=== PATIENT | female | born 1980 | race Two or more races ===

== ENCOUNTER → 2021-05-17 08:59 | Outpatient (BNVA) | payer OTHER, SELFPAY | PROVIDERS: PCP Internal Medicine; Visit Provider Physician Assistant ==

== ENCOUNTER → 2021-06-05 08:05 | Outpatient (BNVA) | payer OTHER, SELFPAY | PROVIDERS: PCP Internal Medicine; Visit Provider Surgery ==

== ENCOUNTER 2021-06-10 09:33 | Outpatient (REF) | payer OTHER, SELFPAY ==
--- NOTE | ~2021-06-10 | XR_ITS ---
EXAMINATION: XR CHEST CLINICAL INFORMATION: Obesity. COMPARISON: None TECHNIQUE: 2 views of the chest were obtained. FINDINGS: The lungs are clear. The cardiomediastinal silhouette is normal in size. There is no pleural effusion or pneumothorax. No acute osseous abnormality. XR/XR chest 2V IMPRESSION: No acute cardiopulmonary findings.
--- NOTE | 2021-06-10 09:45 | ECG_ITS ---
Test Reason : obesity Blood Pressure : / mmHG Vent. Rate : 071 BPM Atrial Rate : 071 BPM P-R Int : 166 ms QRS Dur : 102 ms QT Int : 404 ms P-R-T Axes : 011 031 064 degrees QTc Int : 439 ms Normal sinus rhythm with sinus arrhythmia Normal ECG No previous ECGs available Referred By: Mika Childs Electronically Signed By:MARIAH KWON
[2021-06-10 10:34] LABS: MANUAL DIFF FLAG NO
[2021-06-10 10:59] LABS: Basophils Percent Auto 0.3 % (0-2); Eosinophils Percent Auto 0.5 % (0-4); Hematocrit 35.1 % (37-47); Hemoglobin 10.5 g/dl (12.0-16.0); Imm Gran Abs Auto 0.05 X10*3/uL (0.00-0.03); Imm Gran Pct Auto 0.8 % (0.0-0.4); Lymphocytes Absolute Auto 1.9 X10*3/uL (1.2-4.9); Lymphocytes Percent Auto 29.6 % (20-40); Mean Corpuscular HGB Conc 29.9 g/dl (31.0-35.0); Mean Corpuscular Hemoglobin 17.9 pg (27.0-33.0); Monocytes Absolute Auto 0.5 X10*3/uL (0.1-1.2); Monocytes Percent Auto 8.4 % (2-11); Neutrophils Absolute Auto 3.8 X10*3/uL (2.0-8.3); Neutrophils Percent Auto 60.4 % (45-73); Platelet Count 180 X10*3/uL (160-400); Red Blood Count 5.85 X10*6/uL (4.20-5.50); Red Cell Distribution Width 18.2 % (11.0-16.0); White Blood Count 6.3 X10*3/uL (4.8-10.8)
[2021-06-10 11:01] LABS: Estimated Average Glucose 105 mg/dL; Hemoglobin A1c % 5.3 %
[2021-06-10 11:13] LABS: Alanine Aminotransferase 10 U/L (0-31); Albumin Level 4.1 g/dL (3.5-5.0); Alkaline Phosphatase 72 U/L (39-117); Anion Gap 11 (12-20); Aspartate Amino Transferase 13 U/L (5-31); Bilirubin Total 0.2 mg/dL (0.0-1.0); Blood Urea Nitrogen 8 mg/dL (9-16); C Reactive Protein 0.54 mg/dL (< or = 0.50); Calcium 9.8 mg/dL (8.4-10.2); Carbon Dioxide 22 mmol/L (22-29); Chloride 109 mmol/L (96-108); Cholesterol 229 mg/dL; Estimated Glomerular Filt Rate > 60; Glucose Random 96 mg/dL (60-115); HDL Cholesterol 29 mg/dL; Iron 30 mcg/dL (30-160); LDL Cholesterol Calculated 182 mg/dl; Percent Iron Saturation 8 % (15-50); Potassium 4.2 mmol/L (3.3-5.1); Sodium 138 mmol/L (135-145); Total Iron Binding Capacity 379 mcg/dL (228-428); Total Protein 6.6 g/dL (6.5-8.0); Triglycerides 90 mg/dL; Unsaturated Iron Binding 349 ug/dL
[2021-06-10 11:19] LABS: Ferritin 31 ng/mL (10-122); TSH reflex Free T4 1.08 uIU/mL (0.32-4.0); Vitamin D 25-OH Total 9.7 ng/mL (>30)
[2021-06-10 12:22] LABS: Vitamin B12 456 pg/mL (200-900)
[2021-06-11 18:17] LABS: Insulin Level Total 20.6 uIU/mL
[2021-06-11 18:27] LABS: Calcium (PTHI) 9.9 mg/dL (8.6-10.2); PTHI 99 pg/mL (14-64)
[2021-06-13 06:28] LABS: Zinc 71 mcg/dL (60-130)
[2021-06-14 12:16] LABS: Vitamin B1 <6 nmol/L (8-30)
[2021-06-16 00:26] LABS: Vitamin A 34 mcg/dL (38-98)
== END 2021-06-10 09:34 | disposition home or self-care (01) ==
LOC: HO.LAB 09:33
PROVIDERS: PCP Internal Medicine; Visit Provider Surgery
DX: E66.9 Obesity, unspecified (principal); Z68.38 Body mass index [BMI] 38.0-38.9, adult; E78.5 Hyperlipidemia, unspecified
CPT/HCPCS: 36415; 71046; 80053; 80061; 82306; 82607; 82728; 82746; 83036; 83525; 83540; 83970; 84425; 84443; 84590; 84630; 85025; 86140; 93005

== ENCOUNTER → 2021-07-03 08:09 | Outpatient (BNVA) | payer OTHER, SELFPAY | PROVIDERS: PCP Internal Medicine; Visit Provider Surgery ==

== ENCOUNTER → 2021-07-11 09:21 | Outpatient (BNVA) | payer OTHER, SELFPAY | PROVIDERS: PCP Internal Medicine; Visit Provider Physician Assistant ==

== ENCOUNTER 2021-07-12 | Outpatient (REF) | payer OTHER, SELFPAY ==
[2021-07-15 12:36] LABS: H Pylori Breath Test Positive (Negative)
== END 2021-07-12 00:01 | disposition home or self-care (01) ==
LOC: HO.LNP
PROVIDERS: Visit Provider Surgery
DX: E66.9 Obesity, unspecified (principal); Z68.38 Body mass index [BMI] 38.0-38.9, adult; E78.5 Hyperlipidemia, unspecified
CPT/HCPCS: 83013

== ENCOUNTER → 2021-07-12 09:46 | Outpatient (BNVA) | payer OTHER, SELFPAY | PROVIDERS: PCP Internal Medicine; Visit Provider Physician Assistant ==

== ENCOUNTER → 2021-07-19 08:22 | Outpatient (BNVA) | payer OTHER, SELFPAY | PROVIDERS: PCP Internal Medicine; Visit Provider Dietitian, Registered | DX: E66.9 Obesity, unspecified (principal) | CPT/HCPCS: 97802 ==

== ENCOUNTER 2021-08-01 10:03 | Outpatient (REF) | payer OTHER, SELFPAY ==
--- NOTE | ~2021-08-01 | FL_ITS ---
EXAMINATION: XR GI SERIES CLINICAL INFORMATION: Obesity. COMPARISON: None TECHNIQUE: Air-contrast upper GI examination. FINDINGS: There is normal apposition of the vocal cords while saying E. There is normal elevation of the soft palate while saying candy. Patient swallowed thin and thick barium without difficulty. No nasopharyngeal reflux or tracheal aspiration. No Zenker's diverticulum. There is normal esophageal motility without evidence of stricture or mucosal abnormality. No hiatal hernia. No gastroesophageal reflux. The stomach demonstrates normal distensibility without abnormal mass or ulceration. There was no delay in gastric emptying. The duodenal bulb and sweep appeared unremarkable. FLUOROSCOPY TIME: 1.2 minutes DOSE AREA PRODUCT: 8.487 Gy-cm2 (restrepo-centimeter squared) FL/FL upper GI series IMPRESSION: Normal air-contrast upper GI examination.
--- NOTE | ~2021-08-01 | US_ITS ---
EXAMINATION: US COMPLETE ABDOMEN WITH LIVER ELASTOGRAPHY CLINICAL INFORMATION: Obesity COMPARISON: None. TECHNIQUE: Real-time imaging of the abdominal viscera. Noninvasive ultrasound liver fibrosis assessment is performed using Ivette ElastPQ point quantification shear wave elastography (pSWE) with a C5-2 MHz transducer. Multiple elastography samples are obtained. FINDINGS: PANCREAS: Normal. The visualized pancreatic head and body are normal in appearance. The remainder of the pancreas is obscured from visualization by the overlying bowel gas. ABDOMINAL AORTA: The proximal, middle, and distal aortic segments are normal in caliber. INFERIOR VENA CAVA: Visualized portions are normal. LIVER: Normal. The liver demonstrates normal size, contour and echogenicity. No focal lesion or intrahepatic biliary duct dilatation. The right lobe measures 15 cm in length. The left lobe measures 11 cm in length. Portal flow is normal/hepatopedal Shear wave liver elastography median stiffness is 1.8 m/s (reference: normal median stiffness is 1.3 m/s or less). IQR/median stiffness to assess sampling precision is 0.13 (reference: good quality data set is IQR/median stiffness of 0.15 or less). GALLBLADDER: There is a wall echo shadow complex suggestive of a gallbladder filled with gallstones. COMMON BILE DUCT: Normal in caliber measuring 0.2 cm in diameter. RIGHT KIDNEY: Normal. No hydronephrosis. No renal calculi or focal parenchymal lesions. The kidney measures 13.8 cm in maximum dimension. LEFT KIDNEY: Normal. No hydronephrosis. No renal calculi or focal parenchymal lesions. The kidney measures 13.7 cm in maximum dimension. SPLEEN: Normal. The spleen measures 11.3 cm in maximum dimension. FREE FLUID: None. US/US abdomen comp w elastography IMPRESSION: 1. Impression: Slightly echogenic liver probably representing fatty infiltration. Wall echo shadow complex in the gallbladder suggestive of a gallbladder filled with gallstones. 2. Liver elastography: Adequate liver sampling. Suggestive of compensated advanced chronic liver disease but need further test for confirmation. REFERENCE: Society of Radiologists in Ultrasound Liver Stiffness Thresholds (2020): LIVER STIFFNESS THRESHOLDS: *Liver Stiffness equal or less than 1.3 m/s: High probability of being normal. *Liver Stiffness less than 1.7 m/s: In the absence of other known clinical signs, rules out compensated advanced chronic liver disease. *Liver Stiffness 1.7-2.1 m/s: Suggestive of compensated advanced chronic liver disease but need further test for confirmation. *Liver Stiffness over 2.1 m/s: Rules in compensated advanced chronic liver disease. *Liver Stiffness over 2.4 m/s: Suggestive of clinically significant portal hypertension. QUALITY OF DATA SET: *IQR/Median value equal or less than 0.15 implies a quality data set. *IQR/Median value over 0.15 implies a poor quality data set. SIGNIFICANT CHANGE FROM PRIOR EXAM: Significant change if liver stiffness measurement is 10% or greater from prior exam. OTHER CONSIDERATIONS: The stage of liver fibrosis may be overestimated in the setting of acute hepatitis, liver inflammation, elevated liver function tests, hepatic vascular congestion, obstructive cholestasis, non-fasting state, and infiltrative diseases such as amyloidosis and lymphoma. In some patients with NAFLD, the liver stiffness thresholds for compensated advanced chronic liver disease may be lower. In causes other than viral hepatitis and NAFLD, liver stiffness thresholds are not well established.
== END 2021-08-01 10:04 | disposition home or self-care (01) ==
LOC: HO.US 10:03
PROVIDERS: PCP Internal Medicine; Visit Provider Surgery
DX: E66.9 Obesity, unspecified (principal); Z68.38 Body mass index [BMI] 38.0-38.9, adult; E78.5 Hyperlipidemia, unspecified
CPT/HCPCS: 74240; 76705; 76981

== ENCOUNTER → 2021-08-23 08:13 | Outpatient (BNVA) | payer OTHER, SELFPAY | PROVIDERS: PCP Internal Medicine; Referring Provider Surgery; Visit Provider Dietitian, Registered | DX: E66.9 Obesity, unspecified (principal); Z68.35 Body mass index [BMI] 35.0-35.9, adult | CPT/HCPCS: 97803 ==

== ENCOUNTER 2021-09-02 09:48 | Outpatient (REF) | payer OTHER, SELFPAY ==
[2021-09-04 14:10] LABS: H Pylori Breath Test Negative (Negative)
== END 2021-09-02 09:49 | disposition home or self-care (01) ==
LOC: HO.LNP 09:48
PROVIDERS: Physician Assistant Surgical; PCP Internal Medicine; Visit Provider Surgery
DX: A04.8 Other specified bacterial intestinal infections (principal)
CPT/HCPCS: 83013

== ENCOUNTER → 2021-09-11 11:33 | Outpatient (BNVA) | payer OTHER, SELFPAY | PROVIDERS: PCP Internal Medicine; Visit Provider Physician Assistant Surgical ==

== ENCOUNTER → 2021-09-23 08:33 | Outpatient (BNVA) | payer OTHER, SELFPAY | LOC: CF 09-24 10:15 | PROVIDERS: PCP Internal Medicine; Visit Provider Surgery ==

== ENCOUNTER → 2021-09-24 10:28 | Outpatient (BNVA) | payer OTHER, SELFPAY | PROVIDERS: PCP Internal Medicine; Visit Provider Physician Assistant ==

== ENCOUNTER → 2021-09-27 13:21 | Outpatient (BNVA) | payer OTHER, SELFPAY | PROVIDERS: PCP Internal Medicine; Referring Provider Internal Medicine; Visit Provider Physician Assistant ==

== ENCOUNTER 2021-10-24 12:00 | Day surgery (SDC) | payer OTHER, SELFPAY ==
[2021-09-24 10:25] LABS: MANUAL DIFF FLAG NO
[2021-09-24 10:36] LABS: Basophils Percent Auto 0.5 % (0-2); Eosinophils Absolute Auto 0.1 X10*3/uL (0.0-0.4); Eosinophils Percent Auto 0.9 % (0-4); Hematocrit 36.4 % (37.0-47.0); Imm Gran Abs Auto 0.03 X10*3/uL (0.00-0.03); Imm Gran Pct Auto 0.5 % (0.0-0.4); Lymphocytes Absolute Auto 1.5 X10*3/uL (1.2-4.9); Lymphocytes Percent Auto 24.9 % (20-40); Mean Corpuscular HGB Conc 30.2 g/dl (31.0-35.0); Mean Corpuscular Hemoglobin 17.7 pg (27.0-33.0); Mean Corpuscular Volume 58.5 fL (80.0-98.0); Monocytes Absolute Auto 0.4 X10*3/uL (0.1-1.2); Monocytes Percent Auto 6.9 % (2-11); Neutrophils Absolute Auto 3.9 x10*3/uL (2.0-8.3); Neutrophils Percent Auto 66.3 % (45-73); Platelet Count 226 X10*3/uL (160-400); Red Blood Count 6.22 X10*6/uL (4.20-5.50); Red Cell Distribution Width 19.9 % (11.0-16.0); White Blood Count 5.8 X10*3/uL (4.8-10.8)
[2021-09-24 10:41] LABS: INTERNATIONAL NORM RATIO 1.1 (0.9-1.1); Prothrombin Time 12.1 SEC (9.9-13.0)
[2021-09-24 10:44] LABS: Partial Thromboplastin Time 38.3 SEC (24.1-38.0)
[2021-09-24 10:45] LABS: Estimated Average Glucose 103 mg/dL; Hemoglobin A1c % 5.2 %
[2021-09-24 10:58] LABS: Alanine Aminotransferase 23 U/L (0-31); Alkaline Phosphatase 84 U/L (39-117); Anion Gap 9 (12-20); Aspartate Amino Transferase 20 U/L (5-31); Bilirubin Total 0.2 mg/dL (0.0-1.0); Blood Urea Nitrogen 10 mg/dL (9-16); C Reactive Protein 0.67 mg/dL (< or = 0.50); Calcium 10.4 mg/dL (8.4-10.2); Carbon Dioxide 27 mmol/L (22-29); Chloride 108 mmol/L (96-108); Cholesterol 260 mg/dL; Estimated Glomerular Filt Rate > 60; Glucose Random 94 mg/dL (60-115); HDL Cholesterol 23 mg/dL; LDL Cholesterol Calculated 204 mg/dl; Potassium 4.1 mmol/L (3.3-5.1); Sodium 140 mmol/L (135-145); Triglycerides 169 mg/dL
[2021-09-24 11:18] LABS: Insulin 14 uU/mL (2-29); TSH reflex Free T4 1.03 uIU/mL (0.32-4.0)
[2021-09-27 10:43] VITALS: BMI 34.0
[2021-10-18 14:31] LABS: COVID-19 Test Negative (Negative)
--- NOTE | 2021-10-20 13:57 | MHC.SHP ---
Pre-Procedural Eval Section A Date of Service: 10/20/21 The patient is an INPATIENT: No The History & Physical has been completed within 30 days and I have reviewed it.: Yes Section B Chief Complaint: obesity Relevant Family History (Specify if Yes): No Relevant Social History: None Present Medications: None Medical History: No relevant PMH History of Previous Operations: No relevant previous surgery Allergies: Allergies Allergy/AdvReac Type Severity Reaction Status Date / Time No Known Allergies Allergy Verified 09/27/21 10:40 Review of Systems Sugical H&P ROS: Negative: Constitution, Cardiovascular, Respiratory, Neurological, Psychiatric, Hem-Onc, Allergic/Immunologic, Gastrointestinal, Genitourinary, Musculoskeletal, Integumentary, Endocrine and Eyes/Ears/Nose/Throat Exam Surgical H&P Exam: Normal: HEENT, Normal: Heart, Normal: Lungs, Normal: Extremities, Normal: Abdomen, Normal: Skin and Normal: Neurological Plan Diagnosis/Plan: Unchanged I have reviewed the history and physical and performed a pertinent physical examination on my patient. No changes have occurred unless specified.
--- NOTE | 2021-10-23 10:59 | P.CONAN_ITS ---
Documented by User: Michaela Heath NP 10/23/21 11:47 HPI - Anesthesia Eval Consult details Narrative: 41yo F for Gastrectomy Sleeve,EGD,poss diaphragmatic hernia,poss ventral hernia,poss open PMFSH Active Problems Active Problems: All Active Problems (Updated 07/17/21 @ 20:16 by Mika Childs MD) H. pylori infection (Acute) Moderate episode of recurrent major depressive disorder (Acute) Vitamin A deficiency (Acute) Vitamin B12 deficiency (Acute) Vitamin D deficiency (Acute) Vitamin B1 deficiency (Acute) Hypersomnolence (Acute) Knee pain (Acute) Anxiety (Acute) Depression (Acute) Hyperlipidemia (Acute) BMI 38.0-38.9,adult (Acute) Obesity (Acute) Past Medical History Medical History (Updated 07/17/21 @ 20:16 by Mika Childs MD) Anxiety Depression Hyperlipidemia Knee pain Family History Family History (Updated 06/04/21 @ 11:57 by DMITRY Vuong) Mother Thyroid condition Father Thyroid condition Hypertension Sister No problems noted. Sister No problems noted. Sister No problems noted. Son No problems noted. Daughter No problems noted. Surgical History Surgical History (Updated 06/04/21 @ 11:55 by DMITRY Vuong) Hx of tubal ligation S/P panniculectomy Social History Social History (Updated 06/04/21 @ 11:58 by DMITRY Vuong) Are you a primary transitional care manager to a significant other at home: No Do you presently have visiting nurse or other home services: No Alcohol intake: never Patient Tobacco Use Status: Never used Tobacco Use of substances other than those prescribed or required for medical reasons: No Have you been hit, kicked, punched, or otherwise hurt by someone within the past year? If so, by whom?: No Are you DNR?: No Advance Directives: No Advance Directives Information Provided: Yes Advance Directives on File: No Recently lost weight without trying: No How much weight loss: 24-33 pounds Eating poorly because of decreased appetite: No Nutrition screen score: 3 Nutrition Risks: No Nutritional Risk Patient : No Meds Allergies Allergy/AdvReac Type Severity Reaction Status Date / Time No Known Allergies Allergy Verified 09/27/21 10:40 Exam Exam Date and Time: October 23, 2021 1059 Height,Weight and Vital Signs: Height 5 ft 4.5 in Weight 91.231 kg Pertinent Lab Results Pertinent Lab Results: Laboratory Tests 09/24/21 09/24/21 09/24/21 10:20 10:20 10:20 WBC 5.8 RBC 6.22 H Hgb 11.0 L Hct 36.4 L MCV 58.5 L MCH 17.7 L MCHC 30.2 L RDW 19.9 H Plt Count 226 MPV Not Reportable Immature Gran % (Auto) 0.5 H Neut % (Auto) 66.3 Lymph % (Auto) 24.9 [place] % (Auto) 6.9 Eos % (Auto) 0.9 Baso % (Auto) 0.5 Lymph # (Auto) 1.5 [place] # (Auto) 0.4 Eos # (Auto) 0.1 Baso # (Auto) 0.0 Abs Immat Gran (auto) 0.03 Absolute Neuts (auto) 3.9 Absolute Nucleated RBC 0.000 Nucleated RBC % (auto) 0.0 Smear Path Review SEE NOTE PT 12.1 INR 1.1 APTT 38.3 H Sodium 140 Potassium 4.1 Chloride 108 Carbon Dioxide 27 Anion Gap 9 L BUN 10 Creatinine 0.63 Estim Creat Clear Calc TNP Estimated GFR > 60 Random Glucose 94 Estimat Average Glucose Hemoglobin A1c % Insulin Level 14 Calcium 10.4 H D Total Bilirubin 0.2 AST 20 D ALT 23 Alkaline Phosphatase 84 C-Reactive Protein 0.67 H Total Protein 7.0 Albumin 4.0 Triglycerides 169 Cholesterol 260 LDL Cholesterol, Calc 204 HDL Cholesterol 23 D TSH 1.03 COVID-19 ([place]) COVID-19 Clin Com Blood Type Antibody Screen 09/24/21 09/24/21 10/18/21 10:20 10:20 07:11 WBC RBC Hgb Hct MCV MCH MCHC RDW Plt Count MPV Immature Gran % (Auto) Neut % (Auto) Lymph % (Auto) [place] % (Auto) Eos % (Auto) Baso % (Auto) Lymph # (Auto) [place] # (Auto) Eos # (Auto) Baso # (Auto) Abs Immat Gran (auto) Absolute Neuts (auto) Absolute Nucleated RBC Nucleated RBC % (auto) Smear Path Review PT INR APTT Sodium Potassium Chloride Carbon Dioxide Anion Gap BUN Creatinine Estim Creat Clear Calc Estimated GFR Random Glucose Estimat Average Glucose 103 Hemoglobin A1c % 5.2 Insulin Level Calcium Total Bilirubin AST ALT Alkaline Phosphatase C-Reactive Protein Total Protein Albumin Triglycerides Cholesterol LDL Cholesterol, Calc HDL Cholesterol TSH COVID-19 ([place]) Negative COVID-19 Clin Com See Note Blood Type O Positive Antibody Screen NEGATIVE 10/18/21 14:15 WBC RBC Hgb Hct MCV MCH MCHC RDW Plt Count MPV Immature Gran % (Auto) Neut % (Auto) Lymph % (Auto) [place] % (Auto) Eos % (Auto) Baso % (Auto) Lymph # (Auto) [place] # (Auto) Eos # (Auto) Baso # (Auto) Abs Immat Gran (auto) Absolute Neuts (auto) Absolute Nucleated RBC Nucleated RBC % (auto) Smear Path Review PT INR APTT Sodium Potassium Chloride Carbon Dioxide Anion Gap BUN Creatinine Estim Creat Clear Calc Estimated GFR Random Glucose Estimat Average Glucose Hemoglobin A1c % Insulin Level Calcium Total Bilirubin AST ALT Alkaline Phosphatase C-Reactive Protein Total Protein Albumin Triglycerides Cholesterol LDL Cholesterol, Calc HDL Cholesterol TSH COVID-19 ([place]) COVID-19 Clin Com Blood Type O Positive Antibody Screen NEGATIVE Narrative Narrative: EKG 05/2021 Vent. Rate : 071 BPM ? ? Atrial Rate : 071 BPM ?? P-R Int : 166 ms? QRS Dur : 102 ms ? ? QT Int : 404 ms ? ? ? P-R-T Axes : 011 031 064 degrees ?? QTc Int : 439 ms ? Normal sinus rhythm with sinus arrhythmia Normal ECG No previous ECGs available Assessment and Plan Assessment Anesthesia Assessment: Chart Reviewed Documented by User: Frank Salazar 10/24/21 16:28 [facility] Past Medical History Medical History (Updated 07/17/21 @ 20:16 by Mika Childs MD) Anxiety Depression Hyperlipidemia Knee pain Family History Family History (Updated 06/04/21 @ 11:57 by DMITRY Vuong) Mother Thyroid condition Father Thyroid condition Hypertension Sister No problems noted. Sister No problems noted. Sister No problems noted. Son No problems noted. Daughter No problems noted. Family history of problems with anesthesia: No Surgical History Surgical History (Updated 06/04/21 @ 11:55 by DMITRY Vuong) Hx of tubal ligation S/P panniculectomy History of Problems with Anesthesia: No Social History Social History (Updated 06/04/21 @ 11:58 by Dread Varner Lynn) Are you a primary transitional care manager to a significant other at home: No Do you presently have visiting nurse or other home services: No Alcohol intake: never Patient Tobacco Use Status: Never used Tobacco Use of substances other than those prescribed or required for medical reasons: No Have you been hit, kicked, punched, or otherwise hurt by someone within the past year? If so, by whom?: No Are you DNR?: No Advance Directives: No Advance Directives Information Provided: Yes Advance Directives on File: No Recently lost weight without trying: No How much weight loss: 24-33 pounds Eating poorly because of decreased appetite: No Nutrition screen score: 3 Nutrition Risks: No Nutritional Risk Patient : No Meds Allergies Allergy/AdvReac Type Severity Reaction Status Date / Time No Known Allergies Allergy Verified 09/27/21 10:40 Exam Airway Mallampati Class: III TM Dist: >3cm Neck ROM: Full Loose/Missing/Broken Teeth: Yes (Crowns ) Heart: rrr Lungs: bl breath sounds Assessment and Plan Assessment Anesthesia Assessment: Anesthesia Plan Discussed Final Anesthetic Review Family History of Problems with Anesthesia: No History of Problems with Anesthesia: No NPO: Yes ASA Class: III Final Preanesthetic Review: Meds/Allgs Chart Reviewed, Consent Obtained/Reviewed and Anes Risks/Benef Reviewed Patient Risk: Intermediate Procedure Risk: Intermediate Anesthetic Plan Anesthetic Plan: GA Disposition: Inp. Admit - Standard Bed
[2021-10-23 14:47] LABS: COVID-19 Test Negative (Negative); IDNOW Serial# 9DD0AD1C
[2021-10-24] VITALS (9 sets, daily range): BP systolic 106–159; BP diastolic 56–86; PULSE 57–97; RESP 14–18; TEMP 36.1–37; O2SAT 97–100
[2021-10-24] MEDS: Lactated Ringers 1,000 ML 999 ML IV (13:52)
[2021-10-24] MEDS: Lactated Ringers 1,000 ML 100 ML IVCONT (13:52)
--- NOTE | 2021-10-24 14:22 | PM.OP ---
Brief Operative Note Date of Service: 10/24/21 Post-op diagnosis: same Procedure: INITIAL PATIENT BMI ON PRESENTATION AT OUR OFFICE: 38.2 kg/m2 LAST BMI BEFORE SURGERY: 34.9 kg/m2 COMORBIDITIES: GERD, hyperlipidemia, depression, anxiety, cholelithiasis, liver fibrosis, DJD ?The patient presented to the Weight Management Program with significant obesity that was negatively impacting the patient's comorbidities as listed above.? The program is a phased program with a special focus on preoperative medical weight management to promote substantial weight loss and prepare the patients for the second phase of the program: bariatric surgery. The patient participated in an intensive weekly lifestyle ?intervention and exercise program during which the patient ?has lost between the initial office visit and the last preoperative visit 30lbs, or 13.25% of initial actual body weight. It was deemed appropriate for the patient to now have bariatric surgery. In light of the current Covid-19 pandemic and the well documented strong association of obesity and increased risk of worse outcomes if infected with Covid-19 (REFERENCES:https://pubmed.ncbi.nlm.nih.gov/72542907/,?https://pubmed.ncbi.nlm.nih.gov/29707477/), any delay in undergoing bariatric surgery may lead to the patient's worsening health condition and increased?risk of more severe Covid-19 disease if infected. In addition a recent?study from [facility] published in [facility] on 09/16/2021 ([email or web address]) found that, among patients with obesity, substantial weight loss achieved with surgery was associated with improved outcomes of COVID-19 infection. The findings suggest that obesity can be a modifiable risk factor for the severity of COVID-19 infection. In addition, the patient met the BMI-criteria for bariatric surgery based on the BMI on initial presentation. The patient should not be penalized for achieving such weight loss because ?it is not sustainable long-term without surgical intervention and it was achieved in preparation for bariatric surgery ?under my direction and based on my published research ([email or web address] and?https://www.soard.org/article/[email or web address](90)20028-X/pdf) ?that a 10% preoperative weight loss improves long-term weight loss after surgery and reduces perioperative complications.? Insurance carriers such as [facility] have endorsed my recommendations ?and have included in their policies criteria to include a 10% preoperative weight loss requirement. PROCEDURE: Esophago-gastroscopy, laparoscopic lysis of adhesions, laparoscopic sleeve gastrectomy and laparoscopic gastropexy INDICATIONS: This is a 41 year-old female who was electively scheduled for laparoscopic, possibly open sleeve gastrectomy. The risks and complications of the procedure were discussed with the patient in advance, particularly the possibility of ; pulmonary embolism; staple line leak; bleeding; GERD; cardiac, pulmonary, or renal complications; as well as long-term problems such as insufficient weight loss, vitamin deficiency, strictures, or ulcers. The patient understood all the risks, and was in agreement to proceed with surgery. DESCRIPTION OF PROCEDURE: After informed consent was obtained from the patient, the patient was given preoperative antibiotics, and was transferred to the operating room. After successful induction of general anesthesia, pneumatic compression devices were placed on both lower extremities. An upper endoscopy was performed next. The oropharynx and esophagus appeared to be within normal limits. There was no diaphragmatic hernia present consistent with the findings of the preoperative upper GI. The stomach was entered. Then after all fluid and air were suctioned and the stomach was fully decompressed, the scope was withdrawn and secured in the mid esophagus. The patient was then prepped and draped in the usual sterile manner, and abdominal access was established at the right upper quadrant with the Nishant technique. A 12 mm blunt port was inserted, and the abdomen was insufflated with CO2 to a pressure of 15 mmHg. Under direct visualization, additional ports were placed, specifically two 5 mm Versi-step ports to the left upper quadrant, and a 5 mm Versi-Step port to the right upper quadrant. 1% lidocaine plain was used to infiltrate all port sites as well as all fascia defects. Using the EndoClose suture passer device, I placed a #1 Polysorb tie across the falciform ligament in order to retract it up against the abdominal wall and prevent injury of the ligament with our instruments during the procedure. Adhesiolysis took approximately 45 min to complete. There were adhesions in the abdomen from previous exploratory laparotomy involving the omentum and the anterior abdominal wall. Those were lysed completely with the ultrasonic device. Following that, the patient was placed in a steep reverse Trendelenburg position. An additional 5 mm port was placed to the right flank for the Mediflex retractor that was used to retract the left lobe of the liver. The gastro-esophageal fat pad was opened with the ultrasonic device (Thunderbeat, Olympus) and the anterior esophagus and hiatus were exposed. The angle of His was opened with the ultrasonic device the fundus of the stomach from any diaphragmatic and splenic attachments. I then opened the gastrocolic ligament between the transverse colon and the greater curvature of the stomach with the ultrasonic device to enter the lesser sac and facilitate the ligation of the short gastric vessels. I started at a mid-point along the greater curvature and using the Thunderbeat, all short gastric vessels were divided all the way to the angle of His until the left marce was completely dissected at its entirety. I then divided the gastro-colic ligament distally to a distance of about 3-4 cm proximal to the esophagus. The stomach was then divided transversely with one Endo YANG-45 purple, one YANG-45 orange load and 4 YANG-60 articulating orange loads using the AEON stapler and loads. Every effort was made that the gastric sleeve had a tubular shape and an even caliber throughout. Once the sleeve resection was completed, the staple line of the gastric sleeve was reinforced with Hemoclips. The resected stomach was retrieved without difficulty from the Nishant port. A gastropexy was then performed in order to prevent postoperative GERD and partial gastric volvulus. Several interrupted 2.0 Surgidac sutures were placed between the sleeve's staple line and the previously divided greater omentum and gastro-colic ligament using the Endo-Stitch device. ?An upper endoscopy was performed. There was no narrowing at the GE junction. The scope was easily advanced all the way to the pylorus which was clearly visualized. There was no narrowing anywhere and the sleeve's caliber was even throughout. The sleeve's staple line was inspected and there was no evidence of ischemia, bleeding or dehiscence. At that point the gastroscope was withdrawn from the patient?s mouth while we were decompressing the bowel and the stomach from any remaining air. I looked into the lesser sac to see how the sleeve was situating and it was situating well. There was no bleeding from the staple line, spleen, or short gastric vessels. The Mediflex retractor was removed, and the undersurface of the liver was inspected and there was no bleeding. The patient was placed in supine position. I closed the fascial defect of the 12 mm port site with a figure of eight #1 Polysorb suture. Then 100 cc 0.25 % Marcaine plain with 10 mg of Dexamethasone were used to infiltrate the fascial closure as well as all skin incisions. At this point, the abdomen was deflated, all ports were removed under direct vision, and no bleeding was noted from any of the port sites. The skin incisions were irrigated with saline and were closed with 4-0 absorbable monofilament sutures. Steri-Strips and OpSites were used to cover all incisions. The patient was extubated and was transferred in stable condition to the recovery room for further care. I was present and performed all bobo parts of the procedure. Mr. Salazar was the first press operator. There were no residents to assist with this case. Dawit Childs MD, PhD, FACS Surgeon: Mika Childs MD Anesthesia: GETA, local and other (TAP block) Was an Janitorial Maintenance Worker used for this Procedure?: No Janitorial Maintenance Worker: Juno Salazar Estimated blood loss (mL): 10 IV fluids (mL): 3,000 Urine output (mL): 0 (No Naranjo to record) Pathology: other (Stomach) Condition: stable Disposition: PACU
--- NOTE | 2021-10-24 18:03 | P.DS_ITS ---
DS: Providers Provider Date of Service: 10/25/21 Primary care physician: Dennise Hernandez MD DS: Summary Hospital Course Hospital Course: ADMITTING DIAGNOSIS: morbid obesity, anxiety, depression, hyperlipidemia, vitamin deficiency, ? DISCHARGE DIAGNOSIS: same, s/p laparoscopic sleeve gastrectomy ? PAST SURGICAL HISTORY: panniculectomy, tubal ligation, exploratory laparotomy ? PROCEDURE: upper endoscopy, laparoscopic sleeve gastrectomy ? DISCHARGE SUMMARY: ? History of Present Illness: ? The patient is a?41 year-old woman with a BMI of?38.2 kg/m2 and associated co- morbidities as described above. The patient had extensive work-up,lost?23.2 lbs preoperatively and was electively scheduled for laparoscopic, possible open sleeve gastrectomy and gastropexy. Risks and complications of the surgery were discussed with the patient in advance, particularly the possibility of , pulmonary embolism, anastomotic leak, bleeding, bowel injury, GERD, cardiac, renal or pulmonary complications. The patient understood all the risks and was in agreement with the surgical plan. ? Hospital Course: ? The patient underwent an uneventful laparoscopic sleeve gastrectomy with gastropexy on the day of admission. Postoperatively, the patient was transferred to the surgical floor. The patient received IV Acetaminophen and IV dilaudid for pain control. Patient was started on bariatric phase 1 diet POD #0. On postoperative day one, the patient was feeling well without nausea, vomiting, fevers, or tachycardia. The patient had some mild incisional pain and the abdomen was soft. ? On the morning of postoperative day one, the patient was continued on 1 ounce of water or ice every half hour. During the day, the patient did fairly well, having some incisional pain, but able to ambulate adequately and to tolerate liquids well. ? Since the patient is doing well, we decided that the patient was ready to be discharged. The patient was given instructions to follow-up with me next week and to call my office for any fever over 101, persistent abdominal pain, nausea, vomiting, GERD, symptoms of DVT such as calf tenderness, or leg swelling, or pulmonary embolism such as chest pain or shortness of breath. The patient was also instructed to drink 40-60 ounces of liquids per day using the 1-ounce cups. The patient had been given prescriptions for Tylenol for pain, Zofran prn for nausea, and pantoprazole and carafate previously. The patient was encouraged to ambulate and use the incentive spirometer. The patient was allowed to shower, but no baths, and encouraged to stay active at home. All of these instructions were given to the patient personally. All questions were answered and the patient understood all instructions, the instructions were also given to the patient in print. Status at Discharge Functional status at discharge: independent ambulation Time Spent with Patient Time attestation: Total time spent providing and/or coordinating discharge services: Discharge coordination time: Less than 30 minutes Quality: Stroke Does the patient have a stroke diagnosis?: No Physical Exam Verdana 4l Vital Signs: Verdana 4d Verdana 4d Vital Signs: Verdana 4d Verdana 4Bd Last Vital Signs Verdana 4d Bank Representative New 4d Bank Representative New 4d Temp 97.7 F 10/24/21 12:44 Bank Representative New 4d Pulse 57 10/24/21 12:44 Bank Representative New 4d Resp 16 10/24/21 12:44 BP 106/56 L 10/24/21 12:44 Pulse Ox 97 10/24/21 12:44 BMI result Body Mass Index 34.0 DS: Data Data Completed and Pending Pending studies at discharge: Pending at discharge 10/24/21 17:04 Surgical [PTH] Routine Discharge Plan Discharge Patient Disposition: Home, Self-Care Referrals: Dennise Hernandez MD [Primary Care Provider] - 1 Week Discharge Medications: Continued pantoprazole 40 mg tablet,delayed release (DR/EC) 40 mg PO DAILY Qty: 30 2RF sucralfate 100 mg/mL suspension 10 ml PO BID Qty: 400 2RF ondansetron HCl [Zofran] 4 mg tablet 4 mg PO Q12H Qty: 20 0RF Discontinued cholecalciferol (vitamin D3) 125 mcg (5,000 unit) capsule 125 mcg PO DAILY Qty: 30 2RF mecobalamin (vitamin B12) 1,000 mcg tablet,disintegrating 1,000 mcg sublingual DAILY Qty: 30 2RF Rx Instructions: place tablet under tongue and allow to dissolve for at least30 secs before swallowing polyethylene glycol 3350 [Miralax] 17 gram powder in packet 17 g PO DAILY Qty: 14 0RF Rx Instructions: Mix each packet with 8oz of water and do 7 packets on 09/29/21 and another 7 packets on 09/30/21 Activity Restrictions/Additional Instructions: No tub baths, sex or returning to work until discussed at first post op appointment. No exercise, alcohol, tobacco or illegal drug use. Continue to use incentive spirometer hourly while awake. Walk in home for 5- 10 minutes every 2 hours during the first week. Follow all instructions in the bariatric handbook and call with any questions.Discharge Instructions 1. Please call your doctor or come back to the emergency room should any new symptoms arise. 2. You will receive a courtesy call from [facility] 24-48 hours after discharge. 3. Activity: abstain from alcohol, practice limited stair climbing, no bending, no driving, no exercise, no illicit substances, no lifting, no sex, no tub bath, no work. 4. Diet: continue as discussed with Dr. Childs. 5. Dressing Change/Wound Care: Your incision is covered by clear bandages and guaze underneath. If the area is tender, you may apply an ice pack for short intervals (no more than 20 minutes on, followed by at least 20 minutes off). Do not apply heat. Do not use creams, lotions, or topical antibiotics unless instructed to do so by your surgeon. These can cause infection or allergic reaction. 6. Call your doctor if: - Your temperature exceeds 101.5 F - You experience excessive pain or swelling - You have an unexpected reaction to medication - You have excessive bleeding - You experience continued vomiting/nausea - Your incision begins to separate - Your incision shows signs of infection such as increased redness, swelling, excessive pain, heat, or drainage (light blood or clear fluid is normal) 7. General instructions: No lifting greater than 5 lbs for the next 4 weeks[address] within 24 hours of taking narcotic pain medications. If you do not move your bowels in the next 2 days, please take milk of magnesia over the counter. Please follow the post op diet and do not advance your diet until you are seen in the office in about 2 weeks. Please walk around your home every hour or two to prevent blood clots from forming in your legs. You do not need to wake from sleeping to walk. Please sleep in a bed or couch to prevent kinking at the hips and knees. Please take your incentive spirometer (your lung media associate) home with you and use it for the next few days to prevent pneumonias. You may shower, no hot tubs, baths or swimming pools. Please call the office with any questions or concerns such as increasing abdominal pain, fever, chills, shortness of breath, chest pain, leg pain or swelling, or redness or drainage from your incisions. Please stay on stage 3 diet which includes sugar free clear liquids such as ice pops and jello and broth and crystal light. Avoid all carbonation. Please drink 3 protein shakes with at least 25-30 grams of protein daily or 3 of the Celebrate 4:1 shakes which can be purchased in our office. The Celebrate shakes have all of the bariatric vitamins you need if you consume these shakes. If you are drinking other protein shakes, you will need to purchase the Celebrate multivitamins and calcium that we provide in the office (they will provide all the vitamins you need). Please make sure you are consuming at least 40-60 ounces of water in addition to your 3 protein shakes daily. Do not hesitate to contact the office with any questions at . The patient's medical history has been reviewed and they are considered low risk for post op DVT and therefore DVT prophylaxis is not considered necessary. Travel after surgery was reviewed. The patient has not disclosed any travel plans during the first 30 days after surgery and they have been advised that within the first 30 days after surgery any bus, plane, train or car travel over 2 hours in duration is contraindicated due to the possibility of developing blood clots from immobility. Any travel, needs to include periods of ambulation of 10 minutes in duration every 2 hours.? The patient was instructed to discuss any plans for travel during this period with their bariatric surgeon.
[2021-10-24] MEDS: ondansetron HCL 4 MG/2 ML VIAL IVPUSH ×2 (18:18→21:56)
[2021-10-24] MEDS: Metoclopramide HCl 10 MG/2 ML VIAL IVPUSH (18:22)
[2021-10-24] MEDS: Famotidine/PF 20 MG/2 ML VIAL IVPUSH ×2 (18:31→21:00)
[2021-10-24 18:37] LABS: Hematocrit 33.6 % (37.0-47.0); Hemoglobin 10.2 g/dl (12.0-16.0)
[2021-10-24 18:54] LABS: Anion Gap 14 (12-20); Blood Urea Nitrogen 7 mg/dL (9-16); Calcium 9.1 mg/dL (8.4-10.2); Carbon Dioxide 19 mmol/L (22-29); Chloride 109 mmol/L (96-108); Creatinine Clr Calc Pharmacy 136.3; Estimated Glomerular Filt Rate > 60; Glucose Random 137 mg/dL (60-115); Potassium 4.4 mmol/L (3.3-5.1); Sodium 138 mmol/L (135-145)
[2021-10-24] MEDS: 0.9 % Sodium Chloride Flush 3 ML SYRINGE IVFLUSH (19:44)
[2021-10-24] MEDS: Lactated Ringers 1,000 ML 150 ML IVCONT (19:44)
[2021-10-24] MEDS: ceFAZolin Sodium/Dextrose,Iso 2 GM/50 ML PIGGYBACK IV (21:00)
[2021-10-25] MEDS: ondansetron HCL 4 MG/2 ML VIAL IVPUSH ×2 (02:06→10:04)
[2021-10-25] MEDS: Lactated Ringers 1,000 ML 150 ML IVCONT ×2 (02:08→09:57)
[2021-10-25] MEDS: Metoclopramide HCl 10 MG/2 ML VIAL IVPUSH ×2 (03:58→11:30)
[2021-10-25 04:05] VITALS: BP 131/80; PULSE 77; RESP 16; TEMP 36.8; O2SAT 98
[2021-10-25 05:54] LABS: Hematocrit 32.9 % (37.0-47.0); Hemoglobin 9.9 g/dl (12.0-16.0); Imm Gran Abs Auto 0.02 X10*3/uL (0.00-0.03); Imm Gran Pct Auto 0.3 % (0.0-0.4); Lymphocytes Absolute Auto 0.5 X10*3/uL (1.2-4.9); Lymphocytes Percent Auto 7.5 % (20-40); Mean Corpuscular HGB Conc 30.1 g/dl (31.0-35.0); Mean Corpuscular Hemoglobin 17.6 pg (27.0-33.0); Monocytes Absolute Auto 0.2 X10*3/uL (0.1-1.2); Monocytes Percent Auto 2.4 % (2-11); Neutrophils Percent Auto 89.8 % (45-73); Platelet Count 178 X10*3/uL (160-400); Red Blood Count 5.64 X10*6/uL (4.20-5.50); Red Cell Distribution Width 19.2 % (11.0-16.0); White Blood Count 6.7 X10*3/uL (4.8-10.8)
[2021-10-25 05:59] LABS: Mean Corpuscular Volume 58.3 fL (80.0-98.0)
[2021-10-25 06:00] LABS: MANUAL DIFF FLAG SCAN
[2021-10-25 06:16] LABS: Anion Gap 11 (12-20); Blood Urea Nitrogen 4 mg/dL (9-16); Calcium 9.6 mg/dL (8.4-10.2); Carbon Dioxide 21 mmol/L (22-29); Chloride 106 mmol/L (96-108); Estimated Glomerular Filt Rate > 60; Glucose Random 137 mg/dL (60-115); Sodium 134 mmol/L (135-145)
[2021-10-25 06:55] LABS: SLIDE REVIEW VERIFIED
[2021-10-25 08:00] VITALS: BP 131/78; PULSE 70; RESP 18; TEMP 37.2; O2SAT 99
--- NOTE | 2021-10-25 09:16 | MHC.CM.PN ---
PATIENT IS FULLY INDEPENDENT SHE LIVES WITH FAMILY. NO DME OR VNA IN THE HOME. SHE IS COVID-19 VACCINATED PFIZER 01/04/21 01/25/21 09/07/21 INFORMATION ADDED INTO EXPANSE. PATIENT'S SISTER WILL TRANSPORT HOME. HCP COPY REQUESTED.
[2021-10-25] MEDS: Famotidine/PF 20 MG/2 ML VIAL IVPUSH (10:04)
--- NOTE | 2021-10-25 11:27 | HO.POSTANES ---
Post Anesthesia Evaluation Post Anesthesia Evaluation Vital Signs: Vital Signs Temp Pulse Resp BP Pulse Ox 10/25/21 08:00 99.0 F 70 18 131/78 99 10/25/21 04:05 98.3 F 77 16 131/80 98 10/24/21 23:50 98.5 F 65 16 132/75 100 Anesthesia: General Endotracheal-GETA Mental Status: Awake Pain Control: Satisfactory Nausea/Vomiting: None Hydration: Adequate Anesthesia-Related Issues: No Anes. Related Issues
[2021-10-25 12:00] VITALS: BP 125/66; PULSE 83; RESP 16; TEMP 36.9; O2SAT 100
== END 2021-10-25 15:30 | disposition home or self-care (01) ==
LOC: HO.SSS 12:01 → HO.S3 16:35
PROVIDERS: Physician Assistant Surgical; PCP Internal Medicine; Visit Provider Surgery
PROC: (CPT 43845; principal; 2021-10-24 13:40)
DX: E66.9 Obesity, unspecified (principal); Z68.34 Body mass index [BMI] 34.0-34.9, adult; E78.5 Hyperlipidemia, unspecified; G47.10 Hypersomnia, unspecified; K80.20 Calculus of gallbladder without cholecystitis without obstruction; K74.00 Hepatic fibrosis, unspecified; F41.8 Other specified anxiety disorders; Z79.899 Other long term (current) drug therapy
CPT/HCPCS: 43775; 43659; 36415; 80048; 80053; 80061; 83036; 83525; 84443; 85014; 85018; 85025; 85610; 85730; 86140; 86850; 86900; 86901; 87635; 88307; 88342; A4649; J0131; J0690; J1100; J1170; J2250; J2405; J2765; J3010

== ENCOUNTER → 2021-10-30 08:32 | Outpatient (BNVA) | payer OTHER, SELFPAY | PROVIDERS: PCP Internal Medicine; Referring Provider Internal Medicine; Visit Provider Surgery ==

== ENCOUNTER → 2021-11-29 08:17 | Outpatient (BNVA) | payer OTHER, SELFPAY | PROVIDERS: PCP Internal Medicine; Visit Provider Surgery ==

== ENCOUNTER 2021-12-09 09:48 | Outpatient (REF) | payer OTHER, SELFPAY ==
[2021-12-09 10:26] LABS: Eosinophils Percent Auto 0.9 % (0-4); Hematocrit 32.6 % (37.0-47.0); Imm Gran Abs Auto 0.01 X10*3/uL (0.00-0.03); Imm Gran Pct Auto 0.2 % (0.0-0.4); Mean Corpuscular HGB Conc 30.7 g/dl (31.0-35.0); Mean Corpuscular Hemoglobin 18.3 pg (27.0-33.0); Neutrophils Percent Auto 60.6 % (45-73); Red Blood Count 5.47 X10*6/uL (4.20-5.50); Red Cell Distribution Width 21.7 % (11.0-16.0)
[2021-12-09 10:28] LABS: Basophils Percent Auto 0.5 % (0-2); Lymphocytes Absolute Auto 1.2 X10*3/uL (1.2-4.9); Lymphocytes Percent Auto 27.9 % (20-40); Monocytes Absolute Auto 0.4 X10*3/uL (0.1-1.2); Monocytes Percent Auto 9.9 % (2-11); Neutrophils Absolute Auto 2.7 x10*3/uL (2.0-8.3); Platelet Count 182 X10*3/uL (160-400); White Blood Count 4.4 X10*3/uL (4.8-10.8)
[2021-12-09 10:31] LABS: Mean Corpuscular Volume 59.6 fL (80.0-98.0)
[2021-12-09 11:07] LABS: Alanine Aminotransferase 11 U/L (0-31); Albumin Level 3.9 g/dL (3.5-5.0); Alkaline Phosphatase 72 U/L (39-117); Anion Gap 12 (12-20); Aspartate Amino Transferase 14 U/L (5-31); Bilirubin Total 0.7 mg/dL (0.0-1.0); Blood Urea Nitrogen 9 mg/dL (9-16); Calcium 10.1 mg/dL (8.4-10.2); Carbon Dioxide 24 mmol/L (22-29); Chloride 106 mmol/L (96-108); Cholesterol 197 mg/dL; Estimated Glomerular Filt Rate > 60; Glucose Random 84 mg/dL (60-115); HDL Cholesterol 18 mg/dL; LDL Cholesterol Calculated 159 mg/dl; Potassium 3.5 mmol/L (3.3-5.1); Sodium 138 mmol/L (135-145); Total Protein 6.6 g/dL (6.5-8.0); Triglycerides 101 mg/dL
[2021-12-09 11:17] LABS: Thyroid Stimulating Hormone 0.66 uIU/mL (0.32-4.0)
[2021-12-09 11:27] LABS: Vitamin B12 1240 pg/mL (200-900)
[2021-12-09 11:39] LABS: Ferritin 14 ng/mL (10-250)
== END 2021-12-09 09:49 | disposition home or self-care (01) ==
LOC: HO.10HDL 09:48
PROVIDERS: Visit Provider Internal Medicine
DX: D56.3 Thalassemia minor (principal); E78.2 Mixed hyperlipidemia; Z98.84 Bariatric surgery status
CPT/HCPCS: 36415; 80053; 80061; 82607; 82728; 84443; 85025

== ENCOUNTER 2022-01-24 10:16 | Outpatient (REF) | payer OTHER, SELFPAY ==
--- NOTE | ~2022-01-24 | MM_ITS ---
EXAMINATION: MM SCREENING DIGITAL BREAST TOMOSYNTHESIS, BILATERAL CLINICAL INFORMATION: Screening. Asymptomatic. No prior mammography. Age 41. No known family history breast cancer. The lifetime risk of breast cancer based on the Tyrer-Cuzick Model is 10%. COMPARISON: None (current study represents initial baseline exam). TECHNIQUE: Digital breast tomosynthesis is performed in both the craniocaudal and mediolateral oblique views along with computer-aided detection (CAD). Synthesized 2D images are generated from the tomosynthesis. FINDINGS: There are scattered areas of fibroglandular density (ACR BI-RADS breast composition Category b). There are no significant masses, abnormal calcifications, or other abnormalities. The axilla and skin contours are unremarkable. MM/MM tomosynthesis screening BI IMPRESSION: No mammographic evidence of malignancy. ASSESSMENT: BI-RADS 1: Negative RECOMMENDATION: Routine annual mammography screening. This patient's information was entered into a reminder system with a target due date for their next mammogram.
== END 2022-01-24 10:17 | disposition home or self-care (01) ==
LOC: HO.MAMMO 10:16
PROVIDERS: PCP Internal Medicine; Visit Provider Internal Medicine
DX: Z12.31 Encounter for screening mammogram for malignant neoplasm of breast (principal)
CPT/HCPCS: 77063; 77067

== ENCOUNTER → 2022-01-31 09:29 | Outpatient (BNVA) | payer OTHER, SELFPAY | PROVIDERS: PCP Internal Medicine; Referring Provider Internal Medicine; Visit Provider Dietitian, Registered | DX: E66.3 Overweight (principal); Z68.26 Body mass index [BMI] 26.0-26.9, adult | CPT/HCPCS: 97803 ==

== ENCOUNTER → 2022-02-06 14:00 | Outpatient (BNVA) | payer OTHER, SELFPAY | PROVIDERS: PCP Internal Medicine; Visit Provider Counselor Mental Health | DX: Z13.89 Encounter for screening for other disorder (principal) ==

== ENCOUNTER → 2022-02-19 17:00 | Outpatient (BNVA) | payer OTHER, SELFPAY | PROVIDERS: PCP Internal Medicine; Visit Provider Counselor Mental Health | DX: Z13.89 Encounter for screening for other disorder (principal) ==

== ENCOUNTER 2022-09-29 07:34 | Outpatient (REF) | payer OTHER, SELFPAY ==
[2022-09-29 07:59] LABS: MANUAL DIFF FLAG NO
[2022-09-29 08:25] LABS: Basophils Percent Auto 0.7 % (0-2); Eosinophils Absolute Auto 0.1 X10*3/uL (0.0-0.4); Eosinophils Percent Auto 1.7 % (0-4); Hematocrit 34.7 % (37.0-47.0); Hemoglobin 10.4 g/dl (12.0-16.0); Imm Gran Abs Auto 0.02 X10*3/uL (0.00-0.03); Imm Gran Pct Auto 0.4 % (0.0-0.4); Lymphocytes Absolute Auto 1.7 X10*3/uL (1.2-4.9); Lymphocytes Percent Auto 36.5 % (20-40); Mean Corpuscular Volume 59.9 fL (80.0-98.0); Monocytes Absolute Auto 0.5 X10*3/uL (0.1-1.2); Monocytes Percent Auto 10.3 % (2-11); Neutrophils Absolute Auto 2.3 x10*3/uL (2.0-8.3); Neutrophils Percent Auto 50.4 % (45-73); Platelet Count 201 X10*3/uL (160-400); Red Blood Count 5.79 X10*6/uL (4.20-5.50); Red Cell Distribution Width 18.2 % (11.0-16.0); White Blood Count 4.6 X10*3/uL (4.8-10.8)
[2022-09-29 08:29] LABS: Estimated Average Glucose 100 mg/dL; Hemoglobin A1c % 5.1 %
[2022-09-29 08:42] LABS: Alanine Aminotransferase 13 U/L (0-31); Albumin Level 3.6 g/dL (3.5-5.0); Alkaline Phosphatase 60 U/L (39-117); Anion Gap 9 (12-20); Aspartate Amino Transferase 17 U/L (5-31); Bilirubin Total 0.3 mg/dL (0.0-1.0); Blood Urea Nitrogen 8 mg/dL (9-16); C Reactive Protein < 0.10 mg/dL (< or = 0.50); Carbon Dioxide 27 mmol/L (22-29); Chloride 107 mmol/L (96-108); Cholesterol 270 mg/dL; Estimated Glomerular Filt Rate > 60; Glucose Random 88 mg/dL (60-115); HDL Cholesterol 67 mg/dL; Iron 32 mcg/dL (30-160); LDL Cholesterol Calculated 178 mg/dl; Percent Iron Saturation 9 % (15-50); Potassium 4.1 mmol/L (3.3-5.1); Sodium 139 mmol/L (135-145); Total Iron Binding Capacity 361 mcg/dL (228-428); Total Protein 6.1 g/dL (6.5-8.0); Triglycerides 127 mg/dL; Unsaturated Iron Binding 329 ug/dL
[2022-09-29 09:01] LABS: Ferritin 4 ng/mL (10-250); Insulin 5 uU/mL (2-29); TSH reflex Free T4 1.41 uIU/mL (0.32-4.0); Vitamin D 25-OH Total 26.6 ng/mL (>30)
[2022-09-29 09:14] LABS: Folate 16.2 ng/mL (> or = 4.0); Vitamin B12 621 pg/mL (200-900)
[2022-09-30 12:58] LABS: Calcium (PTHI) 9.9 mg/dL (8.6-10.2); PTHI 91 pg/mL (16-77)
[2022-10-03 17:47] LABS: Zinc 80 mcg/dL (60-130)
[2022-10-04 13:09] LABS: Vitamin B1 11 nmol/L (8-30)
[2022-10-04 17:43] LABS: Vitamin A 45 mcg/dL (38-98)
== END 2022-09-29 07:35 | disposition home or self-care (01) ==
LOC: HO.LAB 07:34
PROVIDERS: PCP Surgery; Visit Provider Physician Assistant Surgical
DX: Z98.84 Bariatric surgery status (principal)
CPT/HCPCS: 36415; 80053; 80061; 82306; 82607; 82728; 82746; 83036; 83525; 83540; 83970; 84425; 84443; 84590; 84630; 85025; 86140

== ENCOUNTER → 2022-10-24 10:27 | Outpatient (BNVA) | payer OTHER, SELFPAY | PROVIDERS: PCP Internal Medicine; Visit Provider Physician Assistant Surgical | DX: Z13.89 Encounter for screening for other disorder (principal) ==

== ENCOUNTER → 2022-10-30 11:00 | Outpatient (BNVA) | payer OTHER, SELFPAY | PROVIDERS: PCP Internal Medicine; Visit Provider Counselor Mental Health | DX: F33.1 Major depressive disorder, recurrent, moderate (principal); F43.22 Adjustment disorder with anxiety; Z98.84 Bariatric surgery status | CPT/HCPCS: 90834 ==

== ENCOUNTER 2023-07-30 16:00 | Outpatient (AMB) | payer OTHER, SELFPAY ==
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
== END 2023-07-30 16:30 | disposition home or self-care (01) ==
LOC: HO.HBST 07-31 08:19
PROVIDERS: PCP Internal Medicine; Visit Provider Counselor Mental Health
DX: F33.1 Major depressive disorder, recurrent, moderate (principal)
CPT/HCPCS: 90834

== ENCOUNTER → 2023-07-30 16:00 | Outpatient (BNVA) | payer OTHER, SELFPAY | PROVIDERS: PCP Internal Medicine; Visit Provider Counselor Mental Health ==

== ENCOUNTER 2023-08-07 09:35 | Outpatient (AMB) | payer OTHER, SELFPAY ==
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
== END 2023-08-07 09:46 | disposition home or self-care (01) ==
LOC: HO.HBST 09:35
PROVIDERS: PCP Internal Medicine; Visit Provider Counselor Mental Health
DX: F33.1 Major depressive disorder, recurrent, moderate (principal)
CPT/HCPCS: 90834

== ENCOUNTER → 2023-08-07 09:35 | Outpatient (BNVA) | payer OTHER, SELFPAY | PROVIDERS: PCP Internal Medicine; Visit Provider Counselor Mental Health ==

== ENCOUNTER 2023-08-17 08:30 | Outpatient (AMB) | payer OTHER, SELFPAY ==
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
== END 2023-08-17 11:03 | disposition home or self-care (01) ==
LOC: HO.HBST 09:21
PROVIDERS: PCP Internal Medicine; Visit Provider Counselor Mental Health
DX: F33.1 Major depressive disorder, recurrent, moderate (principal)
CPT/HCPCS: 90834

== ENCOUNTER → 2023-08-17 08:30 | Outpatient (BNVA) | payer OTHER, SELFPAY | PROVIDERS: PCP Internal Medicine; Visit Provider Counselor Mental Health ==

== ENCOUNTER 2023-09-15 10:11 | Outpatient (AMB) | payer OTHER, SELFPAY ==
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
== END 2023-09-15 18:48 | disposition home or self-care (01) ==
LOC: HO.HBST 10:11
PROVIDERS: PCP Internal Medicine; Visit Provider Counselor Mental Health
DX: F33.1 Major depressive disorder, recurrent, moderate (principal)
CPT/HCPCS: 90834

== ENCOUNTER → 2023-09-15 10:11 | Outpatient (BNVA) | payer OTHER, SELFPAY | PROVIDERS: PCP Internal Medicine; Visit Provider Counselor Mental Health ==

== ENCOUNTER 2024-06-21 09:55 | Outpatient (REF) | payer OTHER, SELFPAY ==
[2024-06-21 11:03] LABS: MANUAL DIFF FLAG NO
[2024-06-21 11:20] LABS: Basophils Percent Auto 0.5 % (0-2); Eosinophils Percent Auto 0.5 % (0-4); Hematocrit 34.1 % (37.0-47.0); Hemoglobin 10.2 g/dl (12.0-16.0); Imm Gran Abs Auto 0.02 X10*3/uL (0.00-0.03); Imm Gran Pct Auto 0.4 % (0.0-0.4); Lymphocytes Percent Auto 35.2 % (20-40); Mean Corpuscular HGB Conc 29.9 g/dl (31.0-35.0); Mean Corpuscular Hemoglobin 17.2 pg (27.0-33.0); Monocytes Absolute Auto 0.5 X10*3/uL (0.1-1.2); Monocytes Percent Auto 9.1 % (2-11); Neutrophils Percent Auto 54.3 % (45-73); Platelet Count 213 X10*3/uL (160-400); Red Blood Count 5.92 X10*6/uL (4.20-5.50); Red Cell Distribution Width 20.4 % (11.0-16.0); White Blood Count 5.6 X10*3/uL (4.8-10.8)
[2024-06-21 11:21] LABS: Mean Corpuscular Volume 57.6 fL (80.0-98.0)
[2024-06-21 11:36] LABS: Alanine Aminotransferase 10 U/L (0-31); Albumin Level 4.1 g/dL (3.5-5.0); Alkaline Phosphatase 66 U/L (39-117); Anion Gap 9 (12-20); Aspartate Amino Transferase 14 U/L (5-31); Bilirubin Total 0.5 mg/dL (0.0-1.0); Blood Urea Nitrogen 11 mg/dL (9-16); Calcium 10.2 mg/dL (8.4-10.2); Carbon Dioxide 24 mmol/L (22-29); Chloride 110 mmol/L (96-108); Cholesterol 233 mg/dL (<200); Estimated Glomerular Filt Rate > 60; Glucose Random 94 mg/dL (60-115); HDL Cholesterol 44 mg/dL (>40); LDL Cholesterol Calculated 162 mg/dL (<100); Potassium 3.9 mmol/L (3.3-5.1); Sodium 139 mmol/L (135-145); Total Protein 7.3 g/dL (6.5-8.0); Triglycerides 139 mg/dL (<150)
[2024-06-21 11:53] LABS: Ferritin 6 ng/mL (10-250)
== END 2024-06-21 09:56 | disposition home or self-care (01) ==
LOC: HO.10HDL 09:55
PROVIDERS: Visit Provider Internal Medicine
DX: Z00.01 Encounter for general adult medical examination with abnormal findings (principal); Z13.6 Encounter for screening for cardiovascular disorders; D25.9 Leiomyoma of uterus, unspecified; G56.03 Carpal tunnel syndrome, bilateral upper limbs; N92.4 Excessive bleeding in the premenopausal period
CPT/HCPCS: 36415; 80053; 80061; 82728; 85025

== ENCOUNTER 2024-07-08 14:40 | Outpatient (REF) | payer OTHER, SELFPAY ==
--- NOTE | 2024-07-08 14:44 | EMG_ITS ---
Chief complaint: 1 month of pain on thumb and index fingers, and tingling at night on 4th and 5th digits, right worse than left. Reason for referral: Evaluate for Carpal Tunnel Syndrome Referred by: Dr. Hernandez Procedure done: Bilateral upper extremities NCS/EMG Precautions and/or limitations: None The limb temperature was monitored continuously and remained between 32-36 degrees C during the performance of the NCS. Nerve Conduction Studies Anti Sensory Summary Table ?Stim Site NR Onset (ms) Norm Onset (ms) Peak (ms) Norm Peak (ms) O-P Amp (?V) Norm O-P Amp Site1 Site2 Delta-0 (ms) Dist (cm) Nelson (m/s) Norm Nelson (m/s) Left Median Anti Sensory (2nd Digit) Wrist ? 2.0 3.0 <3.6 79.5 >10 Wrist 2nd Digit 2.0 14.0 70 Right Median Anti Sensory (2nd Digit) Wrist ? 2.3 2.9 <3.6 49.1 >10 Wrist 2nd Digit 2.3 14.0 61 Right Radial Anti Sensory (Thumb) Forearm ? 1.6 2.0 <3.1 32.6 Forearm Thumb 1.6 0.0 Left Ulnar Anti Sensory (5th Digit) Wrist ? 2.4 2.9 <3.7 36.8 >15.0 Wrist 5th Digit 2.4 14.0 58 Right Ulnar Anti Sensory (5th Digit) Wrist ? 2.2 2.8 <3.7 16.0 >15.0 Wrist 5th Digit 2.2 14.0 64 Motor Summary Table ?Stim Site NR Onset (ms) Norm Onset (ms) O-P Amp (mV) Norm O-P Amp iAmp (mV) Amp (1st) (%) Site1 Site2 Delta-0 (ms) Dist (cm) Nelson (m/s) Norm Nelson (m/s) Left Median Motor (Abd Poll Brev) Wrist ? 3.2 <3.9 10.2 >4.5 12.8 100.0 Elbow Wrist 3.4 20.5 60 >45 Elbow ? 6.6 10.3 13.0 101.0 Right Median Motor (Abd Poll Brev) Wrist ? 3.4 <3.9 14.1 >4.5 16.8 100.0 Elbow Wrist 3.2 18.5 58 >45 Elbow ? 6.6 13.9 16.7 98.6 Left Ulnar Motor (Abd Dig Minimi) Wrist ? 2.6 <3.0 11.7 >5 13.4 100.0 B Elbow Wrist 2.8 18.0 64 >45 B Elbow ? 5.4 11.4 13.1 97.4 A Elbow B Elbow 1.4 10.0 71 >45 A Elbow ? 6.8 10.8 12.5 92.3 Right Ulnar Motor (Abd Dig Minimi) Wrist ? 2.5 <3.0 13.0 >5 15.5 100.0 B Elbow Wrist 3.1 19.5 63 >45 B Elbow ? 5.6 12.1 14.5 93.1 A Elbow B Elbow 1.5 10.0 67 >45 A Elbow ? 7.1 10.7 12.9 82.3 EMG ?Side Muscle Nerve Root Ins Act Fibs Psw Amp Dur Poly Recrt Int Pat Comment Right 1stDorInt Ulnar C8-T1 Nml Nml Nml Nml Nml 0 Nml Complete Right FlexCarRad Median C6-7 Nml Nml Nml Nml Nml 0 Nml Complete Right Biceps Musculocut C5-6 Nml Nml Nml Nml Nml 0 Nml Complete Right Triceps Radial C6-7-8 Nml Nml Nml Nml Nml 0 Nml Complete Right Deltoid Axillary C5-6 Nml Nml Nml Nml Nml 0 Nml Complete Left 1stDorInt Ulnar C8-T1 Nml Nml Nml Nml Nml 0 Nml Complete Left FlexCarRad Median C6-7 Nml Nml Nml Nml Nml 0 Nml Complete Left Biceps Musculocut C5-6 Nml Nml Nml Nml Nml 0 Nml Complete Left Triceps Radial C6-7-8 Nml Nml Nml Nml Nml 0 Nml Complete Left Deltoid Axillary C5-6 Nml Nml Nml Nml Nml 0 Nml Complete FINDINGS: All motor and sensory nerves tested showed normal latencies, amplitudes and conduction velocities. Concentric needle EMG was performed in selected muscles of the upper extremity. Study did not reveal signs of electric abnormalities as shown in the table above. IMPRESSION: 1. This is a normal study. 2. There is no electrodiagnostic evidence for median neuropathy, ulnar neuropathy, brachial plexopathy, or cervical radiculopathy..] Thank you for your kind referral. Janine Montilla MD, ARNALDO Board Certified, [place] Board [employer] and Rehabilitation (ABPMR) Board Certified, [place] Board of Electrodiagnostic Medicine (ABEM) CODIN [phone] MTDD
== END 2024-07-08 14:41 | disposition home or self-care (01) ==
LOC: HO.NEURO 14:40
PROVIDERS: PCP Internal Medicine; Visit Provider Internal Medicine
DX: G56.03 Carpal tunnel syndrome, bilateral upper limbs (principal)
CPT/HCPCS: 95886; 95911

== ENCOUNTER → 2024-07-08 14:44 | Outpatient (BNV) | payer OTHER, SELFPAY | PROVIDERS: PCP Internal Medicine; Visit Provider Physical Medicine & Rehabilitation | DX: M79.645 Pain in left finger(s) (principal); M79.644 Pain in right finger(s) | CPT/HCPCS: 95886; 95911 ==

== ENCOUNTER 2024-08-22 07:40 | Outpatient (REF) | payer OTHER, SELFPAY | END 2024-08-22 07:41 | disposition home or self-care (01) | LOC: HO.LAB 07:40 | PROVIDERS: PCP Internal Medicine; Visit Provider Obstetrics & Gynecology | DX: Z13.89 Encounter for screening for other disorder (principal) ==

== ENCOUNTER 2024-08-22 07:40 | Outpatient (AMB) | payer OTHER, SELFPAY ==
--- NOTE | 2024-08-22 07:50 | A.OFFVIS_ITS ---
Vital Signs 08/22/24 07:51 Height 5 ft 5 in Weight 187 lb BMI 31.1 BP 122/74 Intake Visit Reasons: FERRY HAND annual exam/Referral Certified Personal Trainer Required: No Information Interpreted: non-clinical & clinical Vibration Analyst: Vibration Analyst Present (Paty ANDRES) Accompanied by: Self / Same As Patient Allergies No Known Allergies Allergy (Verified 08/22/24 07:53) Is last menstrual period known: Yes Last menstrual period: 07/31/24 HPI Comments Details: Presenting for annual exam. Complaining of heavy menstrual cycles associated with passage of blood clots and pelvic cramping Last Pap/HPV was few years ago Last Mammogram was BI-RADS 1 in 02/09 [facility] Medical History Knee pain Anxiety Depression Hyperlipidemia Surgical History S/P laparoscopic sleeve gastrectomy Hx of tubal ligation S/P panniculectomy Family History Mother Thyroid condition Father Thyroid condition Hypertension Sister No problems noted. Sister No problems noted. Sister No problems noted. Son No problems noted. Daughter No problems noted. Social History Are you a primary day care center director to a significant other at home: No Do you presently have visiting nurse or other home services: No Alcohol intake: never Patient Tobacco Use Status: Never used Tobacco service: No Current occupational status: employed Female Reproductive History Menstrual Age of Menarche: 16 Duration of menses: 6-7 days Date of last menstrual period: 07/31/24 control method: permanent sterilization Total pregnancies: 3 Full term: 2 Number of Living Children: 2 Ab spontaneous: 1 Date of Mammogram: 01/24/22 Review of Systems Const All systems reviewed & are unremarkable except as noted in HPI and below Card Reports as per HPI Resp Reports as per HPI GI Reports as per HPI and Reports no additional complaints Reports as per HPI Physical Exam Vital Signs: BMI result Body Mass Index 31.1 Const General: cooperative, healthy appearing and comfortable Chest Chest palpation & inspection: normal inspection of the chest and normal palpation of entire chest wall Breast/axilla inspection: normal inspection of the breasts and normal inspection of the axillae Breast/axilla palpation: normal palpation of the breasts, normal palpation of the axillae and no axillary lymphadenopathy Resp Effort & Inspection: normal respiratory effort Auscultation: clear to auscultation bilaterally Percussion: percussion normal Cardio Palpation: normal PMI Rate: regular rate Rhythm: regular rhythm Heart sounds: no murmurs and no rubs Peripheral pulses: Peripheral pulses 2+ throughout GI Inspection: Yes normal to inspection Palpation (GI): Soft to palpation, nontender, no guarding, not rigid and No hepatosplenomegaly present Percussion: Yes normal to percussion Auscultation: normal bowel sounds Rectal Exam - Female: deferred General: Yes bladder normal to palpation External Female Exam: No lesion Speculum Exam - Vagina: normal appearance of the vagina, normal palpation, normal vaginal discharge and not erythematous Speculum Exam - Cervix: normal appearance of the cervix and normal palpation Bimanual exam- vagina & uterus: normal bimanual exam, normal palpation, uterine size normal, bladder normal to palpation, consistency normal and normal palpation Bimanual Exam- Adnexa, other: normal adnexae, no masses and no tenderness Assessment & Plan Assessment & Plan (1) Well woman exam: Code(s): Z01.419 - Encounter for gynecological examination (general) (routine) without abnormal findings Category: Medical Plan: Cotesting done. Mammogram ordered. Counseled the patient about the recommended dietary allowance of 1000 mg of Calcium & 600 IU of vitamin D. The patient was instructed to perform monthly self-breast exams and to schedule an annual exam in a year; All questions answered and the patient verbalized understanding. Instructed the patient to schedule annual exam in a year (2) Abnormal uterine bleeding: Code(s): N93.9 - Abnormal uterine and vaginal bleeding, unspecified Category: Medical Plan: Co testing done, GC and chlamydia taken CBC, TSH, prolactin, HCG, and pelvic ultrasound ordered. Discussed with the patient the different causes of abnormal bleeding including thyroid disorders, uterine and ovarian pathology, endometrial hyperplasia, carcinoma and other potential causes. Discussed with the patient the work up including CBC (to r/o anemia), TSH, prolactin, pelvic Ultrasound, endometrial biopsy to r/o endometrial pathology. All questions answered and the patient verbalized understanding. Instructed the patient to schedule an appointment for an endometrial biopsy in 2 weeks. Orders: Orders TSH reflex Free T4 Today N93.9 - Abnormal uterine and vaginal bleeding, unspecified US pelvic and transvaginal Today N93.9 - Abnormal uterine and vaginal bleeding, unspecified Prolactin Today N93.9 - Abnormal uterine and vaginal bleeding, unspecified MM tomosynthesis screen imp BI Today Z12.31 - Encounter for screening mammogram for malignant neoplasm of breast Complete Blood Count no Diff Today N93.9 - Abnormal uterine and vaginal bleeding, unspecified HCG Quantitative Today N93.9 - Abnormal uterine and vaginal bleeding, unspecified Coding Level of Care Code New Pt Prev Care 40-64y(62203) Diagnoses Well woman exam Z01.419 Abnormal uterine bleeding N93.9
[2024-08-22 07:51] VITALS: BP 122/74; BMI 31.1
== END 2024-08-22 08:10 | disposition home or self-care (01) ==
PROVIDERS: PCP Internal Medicine; Visit Provider Obstetrics & Gynecology
DX: Z01.419 Encounter for gynecological examination (general) (routine) without abnormal findings (principal); N93.9 Abnormal uterine and vaginal bleeding, unspecified
CPT/HCPCS: 99386

== ENCOUNTER 2024-08-22 08:13 | Outpatient (REF) | payer OTHER, SELFPAY ==
[2024-08-22 08:51] LABS: Hematocrit 33.5 % (37.0-47.0); Hemoglobin 10.3 g/dl (12.0-16.0); Mean Corpuscular HGB Conc 30.7 g/dl (31.0-35.0); Mean Corpuscular Hemoglobin 17.4 pg (27.0-33.0); Platelet Count 216 X10*3/uL (160-400); Red Blood Count 5.93 X10*6/uL (4.20-5.50); Red Cell Distribution Width 19.9 % (11.0-16.0); White Blood Count 6.4 X10*3/uL (4.8-10.8)
[2024-08-22 08:53] LABS: Mean Corpuscular Volume 56.5 fL (80.0-98.0)
[2024-08-22 09:51] LABS: HCG Quantitative < 2 mIU/mL; TSH reflex Free T4 2.06 uIU/mL (0.32-4.0)
[2024-08-22 11:38] LABS: CT PCR NOT DETECTED (Not Detect.); NG PCR NOT DETECTED (Not Detect.)
[2024-08-22 13:52] LABS: HPV 16,18/45 See PAP report
[2024-08-23 06:54] LABS: Prolactin 8.3 ng/mL
== END 2024-08-22 08:14 | disposition home or self-care (01) ==
LOC: HO.LNP 08:13
PROVIDERS: Visit Provider Obstetrics & Gynecology
DX: Z12.4 Encounter for screening for malignant neoplasm of cervix (principal); Z11.51 Encounter for screening for human papillomavirus (HPV); N93.9 Abnormal uterine and vaginal bleeding, unspecified; Z20.2 Contact with and (suspected) exposure to infections with a predominantly sexual mode of transmission
CPT/HCPCS: 84146; 84443; 84702; 85027; 87491; 87591; 87624; 88175

== ENCOUNTER 2024-09-01 12:42 | Outpatient (REF) | payer OTHER, SELFPAY | END 2024-09-01 12:43 | disposition home or self-care (01) | LOC: HO.US 12:42 | PROVIDERS: PCP Internal Medicine; Visit Provider Obstetrics & Gynecology | DX: N93.9 Abnormal uterine and vaginal bleeding, unspecified (principal) | CPT/HCPCS: 76830; 76856 ==

== ENCOUNTER 2024-09-06 15:33 | Outpatient (AMB) | payer OTHER, SELFPAY ==
[2024-09-06 15:37] VITALS: BMI 31.1
--- NOTE | 2024-09-06 15:37 | MHC.OFFVIS ---
Vital Signs 09/06/24 15:37 Height 5 ft 5 in Weight 187 lb BMI 31.1 Intake Visit Reasons: EMB Journalism Professor Required: No Information Interpreted: non-clinical & clinical Skate Shop Attendant: Skate Shop Attendant Present (Paty ANDRES) Accompanied by: Self / Same As Patient Allergies No Known Allergies Allergy (Verified 09/06/24 15:38) HPI Comments Details: Presenting for EMB [facility] Medical History Knee pain Anxiety Depression Hyperlipidemia Surgical History S/P laparoscopic sleeve gastrectomy Hx of tubal ligation S/P panniculectomy Family History Mother Thyroid condition Father Thyroid condition Hypertension Sister No problems noted. Sister No problems noted. Sister No problems noted. Son No problems noted. Daughter No problems noted. Social History Are you a primary life care planner to a significant other at home: No Do you presently have visiting nurse or other home services: No Alcohol intake: never Patient Tobacco Use Status: Never used Tobacco service: No Current occupational status: employed Female Reproductive History Menstrual Age of Menarche: 16 Review of Systems Const All systems reviewed & are unremarkable except as noted in HPI and below Reports as per HPI and Reports no additional complaints GI Reports no additional complaints Reports no additional complaints Physical Exam Vital Signs: BMI result Body Mass Index 31.1 Office Procedures Endometrial Biopsy Details: The patient was counseled regarding the indication and benefits of endometrial sampling to rule out endometrial pathology including not limited to endometrial hyperplasia or endometrial cancer and others; The alternatives (Either do nothing vs. hysteroscopy D&C) & the risks were discussed with the patient including but not limited: pain, uterine perforation, bleeding, infection, possible injury to bladder, bowel, ureter, possible need for blood transfusion with all its possible risks. The patient verbalized understanding all questions answered and signed consent. Urine test done in the office was negative The patient was placed into the dorsal lithotomy position; a speculum was inserted in the vagina. Using aseptic technique for the procedure, the cervix was cleansed with Betadine. The anterior lip of the cervix was grasped with a single tooth tenaculum. The uterus was sounded to 7 cm with a 4 mm Pipelle was used. Tissues samples were obtained and placed in formalin, in a patient labeled container and sent to the pathology department. At the end of the procedure, there was minimal bleeding noted The patient tolerated the procedure well and was discharged in good condition with the following instructions: Nothing in the vagina until the bleeding stops. No sex until the bleeding stops, to call if any of the following occurs: fever (>100.4), flu-like symptoms, abdominal pain, heavy bleeding, four smelling vaginal discharge. The patient was instructed to schedule a Follow up appointment in 2 weeks to discuss pathology results of the biopsy and treatment options. This note was generated with a voice recognition program. Some errors may have been overlooked during the review of this note. Sometimes these errors may affect the content or meaning of a given sentence. [id number] Biopsy Results AMB Test Urine AMB Test Urine Negative Last Edit by Paty Soni CMA on 09/06/24 15:39 Results Reviewed Results Reviewed: Laboratory Last Values Tst Clinic Negative 09/06/24 15:39 Assessment & Plan Assessment & Plan (1) Abnormal uterine bleeding: Code(s): N93.9 - Abnormal uterine and vaginal bleeding, unspecified Category: Medical Plan: EMB done, see procedure note Orders: Orders AMB HCG Urine Test Today Z32.02 - Encounter for test, result negative AMB Endometrial Biopsy Today N93.9 - Abnormal uterine and vaginal bleeding, unspecified Coding Level of Care Code Procedure Only Diagnoses Abnormal uterine bleeding N93.9 CPT Codes Endometrial Biopsy - CPT: 67623-[id number] Biopsy ([id number])
== END 2024-09-06 16:07 | disposition home or self-care (01) ==
LOC: HO.HWS 15:33
PROVIDERS: PCP Internal Medicine; Visit Provider Obstetrics & Gynecology
DX: N93.9 Abnormal uterine and vaginal bleeding, unspecified (principal); Z32.02 Encounter for pregnancy test, result negative
CPT/HCPCS: 58100

== ENCOUNTER 2024-09-06 15:33 | Outpatient (REF) | payer OTHER, SELFPAY | END 2024-09-06 15:34 | disposition home or self-care (01) | LOC: HO.LNP 15:33 | PROVIDERS: PCP Internal Medicine; Visit Provider Obstetrics & Gynecology | DX: N93.9 Abnormal uterine and vaginal bleeding, unspecified (principal) | CPT/HCPCS: 58100; 81025; 88305 ==

== ENCOUNTER 2024-09-09 09:20 | Outpatient (REF) | payer OTHER, SELFPAY | END 2024-09-09 09:21 | disposition home or self-care (01) | LOC: HO.MAMMO 09:20 | PROVIDERS: PCP Internal Medicine; Visit Provider Obstetrics & Gynecology | DX: Z12.31 Encounter for screening mammogram for malignant neoplasm of breast (principal) | CPT/HCPCS: 77063; 77067 ==

== ENCOUNTER → 2024-09-09 09:30 | Outpatient (BNV) | payer OTHER, SELFPAY | PROVIDERS: PCP Internal Medicine; Visit Provider Internal Medicine | DX: Z12.31 Encounter for screening mammogram for malignant neoplasm of breast (principal) | CPT/HCPCS: 77063; 77067 ==

== ENCOUNTER 2025-01-26 09:39 | Outpatient (REF) | payer OTHER, SELFPAY ==
[2025-01-26 13:31] LABS: MANUAL DIFF FLAG NO
[2025-01-26 13:43] LABS: Basophils Percent Auto 0.5 % (0-2); Eosinophils Absolute Auto 0.1 X10*3/uL (0.0-0.4); Eosinophils Percent Auto 1.1 % (0-4); Hematocrit 32.2 % (37.0-47.0); Hemoglobin 9.8 g/dl (12.0-16.0); Imm Gran Abs Auto 0.02 X10*3/uL (0.00-0.03); Imm Gran Pct Auto 0.5 % (0.0-0.4); Lymphocytes Absolute Auto 1.6 X10*3/uL (1.2-4.9); Lymphocytes Percent Auto 35.1 % (20-40); Mean Corpuscular HGB Conc 30.4 g/dl (31.0-35.0); Mean Corpuscular Hemoglobin 17.1 pg (27.0-33.0); Monocytes Absolute Auto 0.5 X10*3/uL (0.1-1.2); Monocytes Percent Auto 10.9 % (2-11); Neutrophils Absolute Auto 2.3 x10*3/uL (2.0-8.3); Neutrophils Percent Auto 51.9 % (45-73); Platelet Count 222 X10*3/uL (160-400); Red Blood Count 5.74 X10*6/uL (4.20-5.50); Red Cell Distribution Width 19.6 % (11.0-16.0); White Blood Count 4.4 X10*3/uL (4.8-10.8)
[2025-01-26 13:44] LABS: Mean Corpuscular Volume 56.1 fL (80.0-98.0)
[2025-01-26 14:08] LABS: Alanine Aminotransferase 15 U/L (0-31); Albumin Level 4.2 g/dL (3.5-5.0); Alkaline Phosphatase 68 U/L (39-117); Anion Gap 9 (12-20); Aspartate Amino Transferase 20 U/L (5-31); Bilirubin Total 0.3 mg/dL (0.0-1.0); Blood Urea Nitrogen 8 mg/dL (9-16); Carbon Dioxide 25 mmol/L (22-29); Chloride 110 mmol/L (96-108); Cholesterol 212 mg/dL (<200); Estimated Glomerular Filt Rate > 60; Glucose Random 89 mg/dL (60-115); HDL Cholesterol 41 mg/dL (>40); LDL Cholesterol Calculated 145 mg/dL (<100); Sodium 140 mmol/L (135-145); Triglycerides 130 mg/dL (<150)
[2025-01-26 14:13] LABS: Ferritin 6 ng/mL (10-250)
== END 2025-01-26 09:40 | disposition home or self-care (01) ==
LOC: HO.10HDL 09:39
PROVIDERS: Visit Provider Internal Medicine
DX: D25.9 Leiomyoma of uterus, unspecified (principal); D50.0 Iron deficiency anemia secondary to blood loss (chronic); D56.3 Thalassemia minor; E78.00 Pure hypercholesterolemia, unspecified
CPT/HCPCS: 36415; 80053; 80061; 82728; 85025

== ENCOUNTER 2025-08-23 07:50 | Outpatient (AMB) | payer OTHER, SELFPAY ==
--- NOTE | 2025-08-23 08:04 | MHC.OFFVIS ---
Vital Signs 08/23/25 08:06 Height 5 ft 5 in Weight 177 lb BMI 29.5 BP 108/66 Intake Visit Reasons: annual Allergies No Known Allergies Allergy (Verified 09/06/24 15:38) Is last menstrual period known: No (hysterectomy) PFSH Medical History Knee pain Anxiety Depression Hyperlipidemia Surgical History (Updated 08/23/25 @ 08:28 by Juan Ramon Troncoso MD) Hx of hysterectomy S/P laparoscopic sleeve gastrectomy Hx of tubal ligation S/P panniculectomy Family History Mother Thyroid condition Father Thyroid condition Hypertension Sister No problems noted. Sister No problems noted. Sister No problems noted. Son No problems noted. Daughter No problems noted. Social History Household Members: Spouse and Children Housing: House Are you a primary care coordination manager to a significant other at home: No Do you presently have visiting nurse or other home services: No Alcohol intake: current Alcohol intake frequency: holidays/special occasions only Patient Tobacco Use Status: Never used Tobacco service: No Current occupational status: employed Current occupation: Finishing [employer] Sexual orientation: Straight/Heterosexual Gender identity: Female Female Reproductive History Menstrual Age of Menarche: 16 Menopause type: surgical Total pregnancies: 3 Full term: 2 Number of Living Children: 2 Date of last pap smear: 08/22/24 Date of Mammogram: 09/09/24 Review of Systems Const All systems reviewed & are unremarkable except as noted in HPI and below Card Reports as per HPI and Reports no additional complaints Resp Reports as per HPI and Reports no additional complaints GI Reports as per HPI and Reports no additional complaints Reports as per HPI Physical Exam Vital Signs: BMI result Body Mass Index 29.5 Const General: cooperative, healthy appearing and comfortable General: Yes bladder normal to palpation External Female Exam: No lesion Speculum Exam - Vagina: normal appearance of the vagina, normal vaginal discharge and not erythematous Speculum Exam - Cervix: normal appearance of the cervix Bimanual exam- vagina & uterus: bladder normal to palpation and uterus absent Bimanual Exam- Adnexa, other: Other (No masses detected) Assessment & Plan Assessment & Plan (1) Well woman exam: Code(s): Z01.419 - Encounter for gynecological examination (general) (routine) without abnormal findings Category: Medical Plan: Cotesting not indicated this year. Mammogram ordered. Counseled the patient about the recommended dietary allowance of 1000 mg of Calcium & 600 IU of vitamin D. The patient was instructed to perform monthly self-breast exams and to schedule an annual exam in a year; All questions answered and the patient verbalized understanding. Instructed the patient to schedule annual exam in a year Orders: Orders MM tomosynthesis screen imp BI Today Z12.31 - Encounter for screening mammogram for malignant neoplasm of breast Coding Level of Care Code Est Pt Prev Care 40-64y(45613) Diagnoses Well woman exam Z01.419
[2025-08-23 08:06] VITALS: BP 108/66; BMI 29.5
== END 2025-08-23 08:39 | disposition home or self-care (01) ==
LOC: HO.HWS 07:51
PROVIDERS: PCP Internal Medicine; Visit Provider Obstetrics & Gynecology
DX: Z01.419 Encounter for gynecological examination (general) (routine) without abnormal findings (principal)
CPT/HCPCS: 99396; 99459